=== PATIENT | female | born 1995 | race Caucasian/White ===

== ENCOUNTER 2025-10-27 18:19 | Emergency (ER) | payer BC, SELFPAY ==
[2025-10-27 18:22] VITALS: BP 121/90
[2025-10-27 18:43] LABS: Hematocrit 36.6 % (37.0-47.0); Hemoglobin 12.3 g/dL (12.0-16.0); Mean Corp Hgb Conc. 33.6 g/dL (33.0-37.0); Mean Corpuscular Volume 85.9 fL (81.0-99.0); Nucleated Red Blood Cells % 0 %; Platelet Count 302 10^3/uL (130-400); Red Cell Dist. Width 14.7 % (11.5-14.5)
[2025-10-27 19:01] LABS: ALT (SGPT) 14 U/L (0-35); AST (SGOT) 22 U/L (14-36); Albumin 4.4 g/dl (3.5-5.0); Alkaline Phosphatase 60 U/L (38-126); Blood Urea Nitrogen 18 mg/dl (7-17); Calcium 9.2 mg/dl (8.4-10.2); Carbon Dioxide 24 mmol/L (22-30); Chloride 103 mmol/L (98-107); Glucose 101 mg/dl (70-99); Potassium 3.8 mmol/L (3.5-5.1); Sodium 135 mmol/L (135-145); Total Protein 7.1 g/dl (6.3-8.2); eGFR > 60.00
[2025-10-27 20:54] VITALS: BP 127/84
--- NOTE | 2025-10-27 21:05 | ED.GENMED ---
History of Present Illness
<Maria G Sykes PA-C - Last Filed: 10/28/25 00:59>
General
Chief Complaint: Vaginal Bleeding
Source: patient
Exam Limitations: none
Time Seen by Provider: 10/27/25 20:43
History of Present Illness
History of Present Illness:
30yo female currently 5 weeks presenting for evaluation of vaginal bleeding. Last menstrual period was 08/28/2025. She had a positive home test and was seen at [facility] yesterday. Her urine test was
positive at that time and she had an ultrasound and was told that she was 5w3d . They apparently saw a sac but no pole. She started experiencing vaginal bleeding today. Bleeding was initially mild but started to become heavier
throughout the day. She is passing small clots and has used 1 pad so far today. Patient is experiencing some abdominal cramping but denies any overt pain. No dizziness or syncope. She reports that her blood type is B+.
Past History
<Maria G Sykes PA-C - Last Filed: 10/28/25 00:59>
Past History
ED Past Medical History: None
Social History
Tobacco: Non-smoker
Living: nursing home
Phy Exam
<Maria G Sykes PA-C - Last Filed: 10/28/25 00:59>
General Physical Exam
General Presentation: well appearing and no apparent distress
General age: appears stated age
General Skin: warm and dry
General Habitus: normal
General Mental: alert
ENT Exam
ENT Exam: normocephalic
Pulmonary Exam
Pulmonary Exam: no respiratory distress
Gastrointestinal Exam
Gastrointestinal Exam: non tender, soft and non distended
Neurological Exam
Neurological Exam: alert, no motor deficits and speech normal
Raghu Coma Scale
Eye Opening: Spontaneous
Verbal Response: Oriented
Motor Response: Obeys Commands
GCS Total Score: 15
Skin Exam
Skin Exam: normal color and warm/dry
Psychiatric Exam
Psychiatric Exam: normal mood/affect
Course
<Maria G Sykes PA-C - Last Filed: 10/28/25 00:59>
Orders/Labs/Results
Orders:
Orders
10/27/25 18:32
Complete Blood Count/With Diff Urgent
Comprehensive Metabolic Panel Urgent
HCG, Beta Quantitative [Beta HCG Quantitative] Urgent
Is this a screen?: No
10/27/25 21:04
US Transvaginal Only Urgent
Reason For Exam: vaginal bleeding, 5 weeks
10/27/25 22:32
Type+Screen Urgent
BBK Wristband Number:
10/27/25 23:23
0.9% Sodium Chloride 1000 ml [Nss] 1,000 ml IV BOLUS
Acetaminophen 1000MG/100Ml [Ofirmev] 1,000 mg in 100 ml IV ONCE
Acetaminophen IV Indication:: ED Narcotic Naive Pt-ONCE
Diphenhydramine [Benadryl] 25 mg IV NOW STA
Metoclopramide [Reglan] 10 mg IV NOW STA
Abnormal Lab Results
10/27/25
18:32
Hct 36.6 L %
(37.0-47.0)
RDW 14.7 H %
(11.5-14.5)
Absolute Monos (auto) 0.9 H 10^3/uL
(0.1-0.6)
Monocytes % 10.6 H %
(1.7-9.3)
BUN 18 H mg/dl
(7-17)
Glucose 101 H mg/dl
(70-99)
10/27/25 18:32
10/27/25 18:32
Vital Signs
Initial and Last Documented VS:
Initial Vital Signs
Temp Pulse Resp BP Pulse Ox
98.0 F 96 16 121/90 98
10/27/25 18:22 10/27/25 18:22 10/27/25 18:22 10/27/25 18:22 10/27/25 18:22
Last Documented Vital Signs
Temp Pulse Resp BP Pulse Ox
98.0 F 78 20 111/77 100
10/27/25 18:22 10/28/25 00:33 10/28/25 00:33 10/28/25 00:33 10/28/25 00:33
<Fracisco Roberson MD - Last Filed: 10/28/25 00:20>
Orders/Labs/Results
Orders:
Orders
10/27/25 18:32
Complete Blood Count/With Diff Urgent
Comprehensive Metabolic Panel Urgent
HCG, Beta Quantitative [Beta HCG Quantitative] Urgent
Is this a screen?: No
10/27/25 21:04
US Transvaginal Only Urgent
Reason For Exam: vaginal bleeding, 5 weeks
10/27/25 22:32
Type+Screen Urgent
BBK Wristband Number:
10/27/25 23:23
0.9% Sodium Chloride 1000 ml [Nss] 1,000 ml IV BOLUS
Acetaminophen 1000MG/100Ml [Ofirmev] 1,000 mg in 100 ml IV ONCE
Acetaminophen IV Indication:: ED Narcotic Naive Pt-ONCE
Diphenhydramine [Benadryl] 25 mg IV NOW STA
Metoclopramide [Reglan] 10 mg IV NOW STA
Abnormal Lab Results
10/27/25
18:32
Hct 36.6 L %
(37.0-47.0)
RDW 14.7 H %
(11.5-14.5)
Absolute Monos (auto) 0.9 H 10^3/uL
(0.1-0.6)
Monocytes % 10.6 H %
(1.7-9.3)
BUN 18 H mg/dl
(7-17)
Glucose 101 H mg/dl
(70-99)
10/27/25 18:32
10/27/25 18:32
Vital Signs
Initial and Last Documented VS:
Initial Vital Signs
Temp Pulse Resp BP Pulse Ox
98.0 F 96 16 121/90 98
10/27/25 18:22 10/27/25 18:22 10/27/25 18:22 10/27/25 18:22 10/27/25 18:22
Last Documented Vital Signs
Temp Pulse Resp BP Pulse Ox
98.0 F 78 20 111/77 100
10/27/25 18:22 10/28/25 00:33 10/28/25 00:33 10/28/25 00:33 10/28/25 00:33
<Maria G Sykes PA-C - Last Filed: 10/28/25 00:59>
MDM/Problems Addressed
Differential Diagnosis Includes:
30yoF here with vaginal bleeding and cramping that began today. Currently about 5 weeks . VSS. Abdominal exam benign. Differential diagnosis includes: threatened , miscarriage, subchorionic hemorrhage, ectopic
Initial ED plan: Workup initiated in triage. Quantitative HCG around 1600. Hemoglobin normal. Will check blood typing and pelvic ultrasound.
Final assessment: Blood type B+, no indication for RHOgam. Ultrasound shows suggestion of a small intrauterine gestational sac, slightly ovoid in morphology and relatively low within the endometrial canal. No evidence for embryo or heartbeat.
'Sonographic findings are suggestive of spontaneous in progress, although not considered diagnostic.' Findings reviewed with patient and discussed need for close outpatient OBGYN f/u for serial HCG testing and repeat ultrasound. On
reassessment, she is now complaining of a severe migraine and is requesting migraine cocktail. She has a history of migraines and this is not the worst headache of life. Migraine cocktail ordered. Dr. Roberson will reassess patient once this is complete.
<Maria G Sykes PA-C - Last Filed: 10/28/25 00:59>
*Pulse Oximetry
SaO2: 99
Oxygen Mode of Delivery: Room air
Patient hypoxic: no
*Critical Care Note
Total Time (30-74mins, 75-104mins- exclusive of procedures): Not Applicable
<Fracisco Roberson MD - Last Filed: 10/28/25 00:20>
Update Note
Update Note:
Pt reports improvement in symptoms after treatment. Pt otherwise is afebrile, hemodynamically stable, and appears comfortable at time of discharge. 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
repeat US. Return precautions provided, ie. fever/worsening bleeding/vomiting
ED Attending Note
<Maria G Sykes PA-C - Last Filed: 10/28/25 00:59>
-
Portions of this chart may have been created with voice recognition software.� Occasional wrong word or��sound alike� substitutions may have occurred due to the inherent limitations of voice recognition software.
Discharge Plan
Departure
Patient Disposition: Home (Routine Discharge)
Date of Disposition: 10/28/25
Time of Disposition: 00:19
Patient with high blood pressure during this ER visit?: No
Discharge Problem:
Threatened in early
Instructions: Threatened Miscarriage (DC), Headache in adults - ED (DC)
Prescriptions:
No Action
ondansetron [Zofran ODT] 8 MG tablet,disintegrating
8 mg PO TIDPRN PRN (Reason: vomiting) Qty: 15 0RF
Referrals:
Ranjit Castillo MD [Active, Gynecology]
NONE,* [Family Provider, Internal Medicine]
Activity Restrictions/Additional Instructions:
Ultrasound today shows findings suggestive of a miscarriage in progress although we cannot say for sure. You will need close follow-up with an OBGYN for repeat blood work testing as well as a repeat ultrasound in 10-14 days to further monitor this.
Return to the ER with any worsening symptoms including heavy bleeding (bleeding through >2 pads/hour), dizziness, or if you pass out.
Interventions
Interventions:
*Risk Screen - Suicide Last Done: 10/27/25 18:22
*General Assessment Last Done: 10/27/25 18:22
*Neglect/Abuse Screening Last Done: 10/27/25 18:22
*ED COVID-19 Vaccine History Last Done: 10/27/25 18:22
*ED Influenza Vaccine History Last Done: 10/27/25 18:22
[facility] Fall Risk Assessment Tool Last Done: 10/27/25 20:42
*Nursing Disposition Last Done: 10/28/25 00:33
ED-Female Genitourinary Assessment Last Done: 10/27/25 20:41
Discharge Date and Time
Print Language: BULGARIAN
[2025-10-27 22:33] VITALS: BP 118/82
[2025-10-27 22:35] VITALS: BMI 22.8
[2025-10-27] MEDS: REGLAN 10 MG IV (23:33)
[2025-10-27] MEDS: OFIRMEV 100 IV (23:39)
[2025-10-27] MEDS: BENADRYL 25 MG IV (23:39)
[2025-10-27] MEDS: NSS 1000 IV (23:42)
[2025-10-28 00:33] VITALS: BP 111/77
== END 2025-10-28 00:45 | disposition home or self-care (01) ==
LOC: EMR 18:19
PROVIDERS: Emergency Medicine; EMERGENCY PHYSICIAN Emergency Medicine
DX: O20.0 Threatened abortion (principal); O99.351 Diseases of the nervous system complicating pregnancy, first trimester; G43.909 Migraine, unspecified, not intractable, without status migrainosus; Z3A.01 Less than 8 weeks gestation of pregnancy
CPT/HCPCS: 99284; 96374; 96375 ×2; 76817; 80053; 84702; 85025; 86850; 86900; 86901